=== PATIENT | male | born 1975 | race Caucasian/White ===

== ENCOUNTER 2021-11-17 05:23 | Inpatient (IN) | payer SELFPAY ==
[2021-11-17 07:52] VITALS: BMI 39.3
[2021-11-17] MEDS ORDERED: Morphine 4 MG/ML VIAL ONE (09:13)
[2021-11-17] MEDS ORDERED: hydrALAZINE 20 MG/ML VIAL SLOW IVP PRN (10:02)
[2021-11-17] MEDS ORDERED: Ondansetron ODT 4 MG TAB PO PRN (10:02)
[2021-11-17] MEDS ORDERED: Acetaminophen 325 MG TAB PO PRN (10:02)
[2021-11-17] MEDS ORDERED: Ondansetron PF 4 MG/2 ML Vial IVP PRN (10:02)
[2021-11-17] MEDS ORDERED: Piperacillin/Tazobactam 3.375 GM in Sodium Chloride 0.9% 100 ML IVPB SCH (10:15)
[2021-11-17] MEDS ORDERED: Morphine 4 MG/ML VIAL SLOW IVP SCH (10:30)
[2021-11-17] MEDS: Piperacillin/Tazobactam 3.375 GM in Sodium Chloride 0.9% 100 ML IVPB SCH ×4 (10:55→23:26)
[2021-11-17] MEDS: Lactated Ringer's 1,000 ML IV SCH ×2 (10:56→19:57)
[2021-11-17] MEDS: Morphine 4 MG/ML VIAL SLOW IVP PRN (11:04)
[2021-11-17] MEDS ORDERED: Promethazine HCl 25 MG/ML VIAL IM SCH (14:00)
[2021-11-17 14:19] LABS: Hemoglobin 17.3 g/dL (14.0-18.0); Mean Corpuscular HGB CONC 32.7 g/dL (32.0-36.0); Mean Corpuscular Hemoglobin 29.9 pg (27.0-31.0); Mean Corpuscular Volume 91.3 fL (78.0-98.0); Mean Platelet Volume 5.8 fL (7.4-10.4); Platelet Count 498 thou/uL (130-400); RBC Distribution Width 12.6 % (11.5-14.5); Red Blood Cell (RBC) Count 5.78 mill/uL (4.70-6.10); White Blood Cell (WBC) Count 23.7 thou/uL (4.8-10.8)
[2021-11-17 14:37] LABS: Anion Gap 16 mmol/L (10-20); BUN (Urea Nitrogen) 24 mg/dL (8.9-20.6); Calc. Creatinine Clearance 151 mL/min (70-130); Calcium 10.1 mg/dL (7.8-10.44); Carbon Dioxide 22 mmol/L (22-29); Chloride 103 mmol/L (98-107); Glucose 128 mg/dL (70-105); Magnesium 1.8 mg/dL (1.6-2.6); Phosphorus 3.7 mg/dL (2.3-4.7); Potassium 4.7 mmol/L (3.5-5.1); Sodium 136 mmol/L (136-145)
[2021-11-17 14:53] LABS: Band 7 % (5-11); Lymphocytes 3 % (21-51); MDiff Complete? YES; Monocytes 4 % (0-10); Neutrophil 81 % (42-75); Platelet Morphology Comment Appears Increased; Polychromasia SLIGHT = 2-3 cells (100X) (0-2/hpf); Reactive Lymphocytes 5 % (0-10)
[2021-11-17] MEDS ORDERED: Famotidine/PF 20 mg/2ml Vial ONE (16:03)
[2021-11-17] MEDS ORDERED: Lidocaine 1% PF 5 ML VIAL ONE (16:13)
[2021-11-17] MEDS ORDERED: Succinylcholine 200 MG/10 ml SYRINGE FS ONE (16:13)
[2021-11-17] MEDS ORDERED: Rocuronium Bromide 10 MG/ML (10ML VIAL) ONE (16:13)
[2021-11-17] MEDS ORDERED: Ondansetron PF 4 MG/2 ML Vial ONE (16:13)
[2021-11-17] MEDS ORDERED: PROPOFOL 200 MG/20 ML VIAL ONE (16:13)
[2021-11-17] MEDS ORDERED: Ondansetron HCl/PF 4 MG/2 ML Vial IVP PRN (17:13)
[2021-11-17] MEDS ORDERED: Promethazine HCl 25 MG/ML VIAL IVPB PRN (17:13)
[2021-11-17] MEDS ORDERED: Meperidine HCl/PF 25 MG/ML VIAL SLOW IVP PRN (17:13)
[2021-11-17] MEDS ORDERED: Morphine Sulfate 2 MG/ML SYRINGE SLOW IVP PRN (17:13)
[2021-11-17] MEDS ORDERED: HYDROmorphone 2 MG/ML VIAL SLOW IVP PRN (17:13)
[2021-11-17] MEDS ORDERED: Promethazine HCl 25 MG/ML VIAL IM PRN (17:13)
[2021-11-17] MEDS ORDERED: PACU-Morphine 4MG/ML VIAL SLOW IVP PRN (17:13)
[2021-11-17] MEDS ORDERED: Labetalol HCl 100 MG/20 ML VIAL ONE (17:16)
[2021-11-17] MEDS: Pantoprazole 40 MG VIAL IVP SCH (19:52)
[2021-11-17] MEDS ORDERED: Labetalol HCl 100 MG/20 ML VIAL SLOW IVP SCH (20:30)
[2021-11-17] MEDS ORDERED: Famotidine 20 MG TAB PO SCH (21:00)
[2021-11-17] MEDS: Sodium Chloride 0.9% 1,000 ML IV SCH (23:55)
[2021-11-17] MEDS: HYDROcodone/Acetaminophen 5/325 mg Tablet PO PRN (23:56)
[2021-11-18 05:52] LABS: #Basophils 0.1 thou/uL (0.0-0.2); #Eosinphils 0.1 thou/uL (0.0-0.7); #Lymphocytes 3.4 thou/uL (1.20-3.40); #Neutrophils 9.4 thou/uL (1.40-6.50); %Basophils 0.4 % (0.0-1.0); %Eosinophils 0.7 % (0.0-10.0); %Lymphocytes 24.6 % (21.0-51.0); %Monocytes 6.8 % (0.0-10.0); %Neutrophils 67.5 % (42.0-75.0); Hemoglobin 14.7 g/dL (14.0-18.0); Mean Corpuscular HGB CONC 33.5 g/dL (32.0-36.0); Mean Corpuscular Hemoglobin 30.9 pg (27.0-31.0); Mean Corpuscular Volume 92.3 fL (78.0-98.0); Mean Platelet Volume 5.8 fL (7.4-10.4); Platelet Count 394 thou/uL (130-400); RBC Distribution Width 12.5 % (11.5-14.5); Red Blood Cell (RBC) Count 4.76 mill/uL (4.70-6.10); White Blood Cell (WBC) Count 13.9 thou/uL (4.8-10.8)
[2021-11-18] MEDS: Piperacillin/Tazobactam 3.375 GM in Sodium Chloride 0.9% 100 ML IVPB SCH ×3 (05:58→22:01)
[2021-11-18 06:11] LABS: Anion Gap 12 mmol/L (10-20); BUN (Urea Nitrogen) 19 mg/dL (8.9-20.6); Calc. Creatinine Clearance 170 mL/min (70-130); Calcium 8.8 mg/dL (7.8-10.44); Carbon Dioxide 23 mmol/L (22-29); Chloride 106 mmol/L (98-107); Glucose 103 mg/dL (70-105); Potassium 4.3 mmol/L (3.5-5.1); Sodium 137 mmol/L (136-145)
[2021-11-18] MEDS ORDERED: FLU VACC QS2021-22(6MOS UP)/PF 60 MCG/0.5 ML SYRINGE IM ONE (08:45)
[2021-11-18] MEDS: Enoxaparin Sodium 40 MG/0.4 ML SYRINGE SC SCH (08:52)
[2021-11-18] MEDS: Pantoprazole 40 MG VIAL IVP SCH ×2 (08:52→22:03)
[2021-11-18] MEDS: HYDROcodone/Acetaminophen 5/325 mg Tablet PO PRN (08:56)
[2021-11-18] MEDS: Sodium Chloride 0.9% 1,000 ML IV SCH (14:01)
[2021-11-18] MEDS: Morphine 4 MG/ML VIAL SLOW IVP PRN ×2 (15:48→22:02)
[2021-11-19] MEDS: Sodium Chloride 0.9% 1,000 ML IV SCH (03:23)
[2021-11-19 03:49] LABS: Blood Culture - Extra Bottle RECEIVED; Blue RECEIVED; Gold RECEIVED; Green RECEIVED; Lavender RECEIVED; SST 8.5mL RECEIVED
[2021-11-19] MEDS: Piperacillin/Tazobactam 3.375 GM in Sodium Chloride 0.9% 100 ML IVPB SCH (06:18)
[2021-11-19] MEDS: Enoxaparin Sodium 40 MG/0.4 ML SYRINGE SC SCH (08:35)
[2021-11-19] MEDS: Pantoprazole 40 MG VIAL IVP SCH (08:35)
[2021-11-19 12:31] VITALS: BP 144/91; TEMP 98.3
== END 2021-11-19 12:35 | disposition home or self-care (01) | DRG 872 ==
LOC: SURG A 07:14
PROVIDERS: ADMIT Student in an Organized Health Care Education/Training Program; ATTEND Internal Medicine
PROC: 0D9680Z Drainage of Stomach with Drainage Device, Via Natural or Artificial Opening Endoscopic (ICD-10-PCS; principal; 2021-11-17)
PROC: 0DJD8ZZ Inspection of Lower Intestinal Tract, Via Natural or Artificial Opening Endoscopic (ICD-10-PCS; 2021-11-17)
PROC: 3E03329 Introduction of Other Anti-infective into Peripheral Vein, Percutaneous Approach (ICD-10-PCS; 2021-11-17)
DX: A41.9 Sepsis, unspecified organism (principal); A09 Infectious gastroenteritis and colitis, unspecified; K56.7 Ileus, unspecified; F90.9 Attention-deficit hyperactivity disorder, unspecified type; K21.00 Gastro-esophageal reflux disease with esophagitis, without bleeding; Z87.442 Personal history of urinary calculi
CPT/HCPCS: 36415; 80048; 83735; 84100; 85025; 85652; 86140; 87324; 87427; 87449; 93005; 93010; C9113; J1650; J2270; J2405; J2543; J2550; J2704; J3490; J7050; J7120; S0028